=== PATIENT | female | born 1980 | race Caucasian/White ===

== ENCOUNTER 2022-03-14 11:42 | Outpatient (CLI) | payer OTHER | END 2022-03-14 11:43 | disposition home or self-care (01) | LOC: CSHMRI 11:42 | PROVIDERS: ATTEND Neurological Surgery | DX: M54.12 Radiculopathy, cervical region (principal); M50.821 Other cervical disc disorders at C4-C5 level; M50.321 Other cervical disc degeneration at C4-C5 level; M50.021 Cervical disc disorder at C4-C5 level with myelopathy | CPT/HCPCS: 72050; 72141 ==